=== PATIENT | male | born 1965 | race Caucasian/White ===

== ENCOUNTER 2018-01-19 11:12 | Emergency (ER) | payer MEDICARE, OTHER ==
[~2018-01-19] VITALS: Ht 177.8 cm; Wt 69.8 kg
--- OUTSIDE RECORDS SUMMARY | ~2018-01-19 | XMS | Clinical Summary ---
Demographics + + + | Address | [address] | | | [place] [address] | + + + | Home Phone | | + + + | Preferred Language | Unknown | + + + | Marital Status | Single | + + + | Voodoo Affiliation | 1009 | + + + | Race | Unknown | + + + | Ethnic Group | Unknown | + + + Author + + + | Author | [employer] | + + + | Organization | [employer] [facility] | + + + | Address | Unknown | + + + | Phone | Unavailable | + + + Support + + +---------+ + | Name | Relationship | Address | Phone | + + +---------+ + | Renard Ovalles | ECON | Unknown | | + + +---------+ + | Meghan Etienne | ECON | Unknown | | + + +---------+ + Care Team Providers + +------+ + | Care Plumber And Tinner Name | Role | Phone | + +------+ + | Jordin Mcginnis MD | PP | | + +------+ + Allergies No Known Allergies Current Medications Not on file Active Problems + + + | Problem | Noted Date | + + + | Acute respiratory failure with hypoxia (HCC) | 11/07/2015 | + + + | Aspiration into airway | 11/07/2015 | + + + | Airway obstruction due to foreign body | 11/07/2015 | + + + | Pneumothorax | 11/07/2015 | + + + | Cerebral palsy (HCC) | 11/07/2015 | + + + | Developmental delay | 11/07/2015 | + + + | Shock circulatory | 11/07/2015 | + + + | Subcutaneous emphysema (HCC) | 11/07/2015 | + + + Social History + +-------+ +--------+------+ | Tobacco Use | Types | Packs/Day | Years | Date | | | | | Used | | + +-------+ +--------+------+ | Never Smoker | | | | | + +-------+ +--------+------+ + +---+---+---+ | Smokeless Tobacco: | | | | | Never Used | | | | + +---+---+---+ + + + | Sex Assigned at | Date Recorded | | | | + + + | Not on file | | + + + Last Filed Vital Signs + + + + | Vital Sign | Reading | Time Taken | + + + + | Blood Pressure | 100/58 | 11/12/2015 5:32 PM PDT | + + + + | Pulse | 50 | 11/12/2015 5:32 PM PDT | + + + + | Temperature | 37.1 C (98.8 F) | 11/12/2015 5:32 PM PDT | + + + + | Respiratory Rate | 21 | 11/12/2015 5:32 PM PDT | + + + + | Oxygen Saturation | 98% | 11/12/2015 5:32 PM PDT | + + + + | Inhaled Oxygen | - | - | | Concentration | | | + + + + | Weight | 60.6 kg (133 lb 9.6 | 11/12/2015 3:15 AM PDT | | | oz) | | + + + + | Height | 167.6 cm (5' 6") | 11/08/2015 7:30 AM PDT | + + + + | Body Mass Index | 21.56 | 11/12/2015 3:15 AM PDT | + + + + Plan of Treatment Not on file Results Not on filefrom Last 3 Months Insurance + +--------+ +------+-------+ + | Payer | Benefi | Subscriber | Type | Phone | Address | | | t Plan | ID | | | | | | / | | | | | | | Group | | | | | + +--------+ +------+-------+ + | MEDICARE | MEDICA | [id number] | | | [address] | | | RE | | | | [place] [id number] | | | IP-OP | | | | | + +--------+ +------+-------+ + | MEDICAID | [employer] | [id number] | | | [address] | | | [place] | | | | [place] | | | [place] | | | | [phone] | | | SPARERIBS TRIMMER | | | | | + +--------+ +------+-------+ + + +--------+ +--------+ + + | Guarantor Name | Accoun | Relation to | Date | Phone | Billing Address | | | t Type | Patient | of | | | | | | | | | | + +--------+ +--------+ + + | JOSS DALLAS | Person | Self [birth year] Home: | [address] | | | al/Fam | | 1965 | [phone] | [place] | | | [place] | | | [phone] | + +--------+ +--------+ + +
--- OUTSIDE RECORDS SUMMARY | ~2018-01-19 | XMS | Clinical Summary ---
Demographics + + + | Address | [address] | | | [place] [address] | + + + | Home Phone | | + + + | Preferred Language | Unknown | + + + | Marital Status | Single | + + + | Mandaen Affiliation | 1009 | + + + | Race | Unknown | + + + | Ethnic Group | Unknown | + + + Author + + + | Author | [employer] | + + + | Organization | [facility] | + + + | Address [...] Team Providers + +------+ + | Care Air Transport Professionals Name | Role | Phone | + [...] +------+-------+ + | MEDICARE | MEDICA | [id number] | | | [address] | | | RE | | | | [place] [address] | | | IP-OP | | | | | + +--------+ +------+-------+ + | MEDICAID | [employer] | [id number] | | | [address] | | | N | | | | [place] | | | [place] | | | | [phone] | | | FORGE TENDER | | | | | + +--------+ [...] | Self | [birth year] | Home: | [address] | | | al/Fam | | 1965 | [phone] | [place] | | | [place] | | | [phone] | [phone] | + +--------+ +--------+ + +
[~2018-01-19 11:12] MED LIST: CARVEDILOL3.125 MG PO; DOK100 MG PO; LEVOTHYROXINE75 MCG PO; LOSARTAN POTASS50 MG PO; OLANZAPINE15 MG PO; SULFAMETHOXAZO1 EACH PO; VITAMIN D2000 UNI1 PO
[2018-01-19] MEDS ORDERED: LINZESS290 MCG PO (11:43)
[2018-01-19] MEDS ORDERED: FINASTERIDE5 MG PO (11:44)
[2018-01-19] MEDS ORDERED: KEFLEX500 MG PO (12:13)
== END 2018-01-19 12:35 | disposition home or self-care (01) ==
LOC: ED 11:12
DX: L97.429 Non-pressure chronic ulcer of left heel and midfoot with unspecified severity (principal); L03.116 Cellulitis of left lower limb; E03.9 Hypothyroidism, unspecified; Z88.8 Allergy status to other drugs, medicaments and biological substances; Z79.899 Other long term (current) drug therapy
CPT/HCPCS: 99283

== ENCOUNTER 2019-06-26 16:29 | Inpatient (IN) | payer MEDICARE, OTHER ==
[~2019-06-26] VITALS: Ht 177.8 cm; Wt 71.5 kg
[~2019-06-26 16:29] MED LIST changes: +FINASTERIDE5 MG PO; +KEFLEX500 MG PO; +LINZESS290 MCG PO
[2019-06-26] MEDS ORDERED: FLOMAX0.4 MG PO (18:51)
--- NOTE | 2019-06-26 19:41 | EKG ---
[facility] [address] [facility] [place], [place] [address] Signed Normal sinus rhythm Nonspecific T wave abnormality Abnormal ECG Confirmed by KILLIAN GARCIA DO ([id number]) on 06/26/2019 7:40:58 PM Electronically Signed By: KILLIAN GARCIA DO 06/26/191940 PATIENT NAME: JOSS DALLAS Electrocardiogram DATE OF : [birth year] PHYSICIAN: KILLIAN GARCIA DO REPORT #: [id number] REPORT IS CONFIDENTIAL AND NOT TO BE RELEASED WITHOUT AUTHORIZATION
--- NOTE | 2019-06-26 20:34 | NUR ---
PT ARRIVED IN CCU AT 192. V/S SO FAR ARE WDL, RLL HAS CRACKLES PRSENT, ALL OTHER LOBES ARE DIMISHED. PT IS ALSO NOT ABLE TO FOLLOW COMMANDS VERY WELL. ABD SOUNDS ARE HYPOACTIVE. ABD IS SOFT TO TOUCH AND PT DENIED PAIN. PT ALSO HAS A TREMOR. PT HAS SCABS PRSENT ALL OVER BILATERAL LEGS. PER OPERATOR RECEPTIONIST DIET SHOULD BE HONEY THICK AND NO STRAWS. IN REPORT, RN FROM ED SAID THAT PO ZITHROMAX 500MG WAS GIVEN. AT THIS TIME THIS DOES NOT SEEM TO BE THE CASE. IV ZITHROMAX IS TO BE GIVEN.
--- NOTE | 2019-06-26 22:34 | NUR ---
PT HAD 2 LARGE VOIDS. LINNEN WAS CHANGED. PT IS INCONTIINENT. NO NEW CONCERNS NOTED AT THIS TIME.
--- NOTE | 2019-06-26 22:57 | NUR ---
ALL SCHEDULED PO MEDS HAVE BEEN GIVEN. I WAS WAITING ON RESULTS FROM KUB. NO NEW CONCERNS NOTED AT THIS TIME.
--- NOTE | 2019-06-27 00:16 | NUR ---
ADMIT THIS 64YR OLD MALE TO CCU FROM ED. ABLE TO MOVED SELF FROM STRETCHER TO BED. NO SOB BUT DOES REQUEST HOB ELEVATED. HEPARIN GTT STARTED AT 2330 AT 16OO UNITS/HR. BROUGHT IN CPAP FROM HOME AND RT HERE TO SET IT UP. HAS CPAP IN PLACE AT HIS TIME WITH 02 4L BLED IN.
--- NOTE | 2019-06-27 00:21 | NUR ---
PT AT THIS TIME IS AWAKE IN BED. PT DENIES PAIN AND HAS NO OTHER NEEDS AT THIS TIME. NO BM SO FAR.
--- NOTE | 2019-06-27 02:23 | NUR ---
PT IS SLEEPING AT THIS TIME. NO NEW CONCERNS NOTED.
--- NOTE | 2019-06-27 04:15 | NUR ---
ALL LOBES AT THIS TIME ARE DIMINISHED BUT CLEAR, PT DID HAVE A SOFT BM. PT STILL DENIES PAIN AND SOB. BOWEL TONES ARE NORMALLY ACTIVE. PT IS DUE TO VOID AT THIS TIME. NO OTHER CONCERNS NOTED SO FAR.
--- NOTE | 2019-06-27 06:04 | NUR ---
PT IS SLEEPING AT THIS TIME. SO FAR PT HAD BM X1, PT HAD A VERY LARGE VOID EARLIER IN THE SHIFT WHICH I COUNTED 2 VOIDS. THE BED HAD TO BE CHANGED. PT HAS BEEN AFEBRILE ALL SHIFT SO FAR. NO ASPIRATION WAS NOTED WITH HONEY THICK LIQUIDS GIVEN. NO SPUTUM SAMPLE HAS BEEN OBTAINED SO FAR. PT HAS DENIED PAIN AND SOB ALL SHIFT SO FAR, V/S ARE WDL, UPON ARRIVAL PT HAD CRACKLES IN THE RLL AND DIMINISHED BREATH SOUNDS IN THE OTHER LOBES (PT IS NOT REALLY FOLLOWING COMMANDS TO TAKE DEEP BREATHS). AT 0415 ALL LOBES WERE DIMINISHED AND NO CRACKLES WERE NOTED.
--- NOTE | 2019-06-27 07:01 | NUR ---
PT STILL HAS NOT VOIDED. BLADDER SCAN SHOWED 465MLS PRESENT IN BLADDER. WILL LET DAY SHIFT KNOW.
--- NOTE | 2019-06-27 08:00 | NUR ---
AWAKE, ASSESSMENT DONE. DIFFICULT TO UNDERSTAND. HAS LOOSE NON-PRODUCTIVE COUGH. IVF PATENT. BREAKFASFT ORDERED.
--- NOTE | 2019-06-27 08:30 | NUR ---
OUT OF BED TO CHAIR WITH TOTAL ASSIST.
--- NOTE | 2019-06-27 08:50 | NUR ---
TOOK MEDICATIONS WITH PROBLEMS.
--- NOTE | 2019-06-27 09:00 | NUR ---
FED PATIENT BREAKFAST. TOLEATED WELL. NO COUGHING NOTED. TOOK 2 ENSURES, CREAM OF WHEAT, YOGART, APPLESAUSE.
--- NOTE | 2019-06-27 09:20 | NUR ---
INC OF LARGE AMOUNT OF URINE. BACK TO BED WITH TOTAL ASSIST, SPONGE BATH GIVEN AND ATTENDS PLACED.
--- NOTE | 2019-06-27 10:00 | NUR ---
DR. GARCIA HERE TO SEE PATIENT. IVF DECREASED 75 ML HR.
--- NOTE | 2019-06-27 10:18 | NUR ---
ST CHART REVIEW COMPLETED AND TELEPHONE CALL TO FLOOR; BASED ON COGNITIVE SKILLS AND PHYSICAL ABILITIES, PT WOULD BENEFIT FROM A MODIFIED BARIUM SWALLOW STUDY TO R/O ASPIRATION AND DETERMINE APPROPRIATE DIET INTAKE.
[2019-06-27] MEDS ORDERED: ZYPREXA10 MG PO (11:22)
[2019-06-27] MEDS ORDERED: VICKS DAYQUIL1 EACH PO (11:26)
[2019-06-27] MEDS ORDERED: MILK OF MA400 MG/5 M PO (11:26)
--- NOTE | 2019-06-27 11:28 | NUR ---
MED REC COMPLETE
--- NOTE | 2019-06-27 12:40 | NUR ---
TO XRAY VIA CHAIR FOR SWALLOW EVAL.
--- NOTE | 2019-06-27 13:30 | NUR ---
RETURN TO ROOM 127. BACK TO BED. NO DISTRESS NOTED. ORDERS FORM SPEECH THERAPY RECIEVED POST SWALLOW EVAL.
--- NOTE | 2019-06-27 14:20 | NUR ---
FED PATIENT THICKENED LIQ AND PUREED FOODS. TOLERATED WELL. HOB ELEVATED TO 70 DEGREES. CONTINUES TO HAVE SPASTIC MOVEMENTS AT TIMES. CAREGIVER SAID, THIS IN NORMAL FOR PATIENT.
--- NOTE | 2019-06-27 14:34 | NUR ---
WELT BEATER IN WORKING WITH PT. WILL CHECK BACK AGAIN
--- NOTE | 2019-06-27 15:20 | NUR ---
Attempted to speak with Ron and he is unable/unwilling to answer questions. Will call his [facility] for assessment.
--- NOTE | 2019-06-27 16:00 | NUR ---
REPORT TO MED-SURG. PATIENT IS ASLEEP.
--- NOTE | 2019-06-27 16:10 | NUR ---
TO MED-SURG VIA BED.
--- NOTE | 2019-06-27 16:26 | NUR ---
NEW ADMIT TO THE FLOOR. PT RESPONSIVE TO VERBAL STIMULI, APPEARS VERY TIRED. VS TAKEN, TEMP 101.5F PO. PT INCONTINENT; BRIEF DRY AT THIS TIME. ORIENTED PT TO ROOM AND CALL LIGHT. PERSONAL SUPPLIES AND CALL LIGHT WITHIN REACH. BED ALARM INTACT.
--- NOTE | 2019-06-27 16:36 | NUR ---
NOTIFIED DR. GARCIA REGARDING TEMP OF 101.5F PO. NO NEW ORDERS AT THIS TIME. TYLENOL TO BE ADMIN.
--- NOTE | 2019-06-27 16:48 | NUR ---
ADMIN TYLENOL 650MG PO CRUSHED WITH APPLESAUCE FOR FEVER OF 101.5F PO. PT TOLERATED WELL.
--- NOTE | 2019-06-27 17:17 | NUR ---
Called and spoke with Chandler from pt's assisted. Per Chandler pt uses a wc, and must be wheeled, he has dementia and is not able to answer questions. He requires full care for ADLS. He requires someone to feed him. He does not use home 02 or a nebulizer. Emergency contact is Meghan Campbell and this is his cousin. Per Chandler. pt will return to their assisted when able to discharge.
--- NOTE | 2019-06-27 19:06 | NUR ---
NEW ORDER OBTAINED FROM DR. GARCIA FOR PRN STRAIGHT CATH IF BLADDER SCAN EXCEEDS 500ML. DR. GARCIA AWARE PT HAS NOT VOIDED FOR SEVERAL HOURS AND CURRENT BLADDER SCAN IS 709ML.
--- NOTE | 2019-06-27 19:30 | NUR ---
BEDSIDE REPORT RECEIVED FROM MADELINE MAURICIO. pt RESTING IN BED. IVF INFUSING WNL ORDERED. pt VERBAL, STATING "HI" TO THIS RN. BED ALARM ON.
--- NOTE | 2019-06-27 20:45 | NUR ---
pt ASSESSMENT COMPLETE. pt REPOSITIONED WITH TWO RN ASSIST. HOB ELEVATED ABLE TO TAKE PO MEDICATIONS CRUSHED WITH APPLESAUCE. DRINKS OF MOD THICKENED APPLE JUICE BY SPOON PROVIDED. NO COUGHING NOTED. ATTENDS DRY AT THIS TIME. IV FLUSHED AND INFUSING WNL ORDERED. CALL LIGHT IN REACH. TV TURNED ON BY pt REQUEST. pt IS ORIENTED TO PERSON, ONLY. REORIENTATION PROVIDED. BED ALARM ON.
--- NOTE | 2019-06-27 23:28 | NUR ---
CHECKED ON pt. LYING IN BED AWAKE WATCHING TV. REPOSITIONED WITH TWO NURSING STAFF ASSIST. DRINKS OF MOD. THICK APPLE JUICE PROVIDED. IVF INFUSING WNL ORDERED. WARM BLANKET PROVIDED. BED ALARM ON. ATTENDS DRY.
--- NOTE | 2019-06-27 23:30 | NUR ---
ASSISTED PRIMARY RN JAMES REPOSITIONED PATIENT. PATIENT HAD SEVERAL SPOONFUL OF THICKENED JUICE.
--- NOTE | 2019-06-28 02:42 | NUR ---
CHECKED ON pt. RESTING IN BED WITH EYES CLOSED. BREATHING UNLABORED. HOB ELEVATED. IVF INFUSING WNL ORDERED.
--- NOTE | 2019-06-28 04:20 | NUR ---
pt BLADDER SCANNED FOR 526 MLS URINE. STRAIGHT CATHETER PLACED PER ORDER, 375 MLS EMPTIED. pt COUGHING, REPOSITIONED. HOB ELEVATED, SIPS OF THICKENED JUICE PROVIDED. LUNG SOUNDS CLEAR, DIMINISHED BILATERALLY IN BASES. VSS. AFEBRILE. ATTENDS IN PLACE. IVF INFUSING WNL ORDERED, IV FLUSHED WNL.
--- NOTE | 2019-06-28 05:15 | NUR ---
pt RESTED WELL IN MORNING HOURS. NO INCONTINENCE OF URINE. BLADDER SCAN >500 MLS, STRAIGHT CATHETER PER ORDERS. pt VERBAL, RESPONSIVE. ORIENTED TO SELF, ONLY. REORIENTATION PROVIDED. TURN Q2H. IVF INFUSING WNL THROUGHOUT SHIFT. THICKENED LIQUIDS OFFERED, pt TOLERATING WELL, NO COUGHING WITH DRINKING, EATING MEDICATIONS CRUSHED WITH APPLESAUCE. OCCASIONAL CONGESTED COUGH. SPO2 WNL ON RA.
--- NOTE | 2019-06-28 07:29 | NUR ---
PT IN BED RESTING, EYES CLOSED. PT HAS NO DISTRESS NOTED, RESPIRATIONS EVEN AND NON LABORED. PERSONAL SUPPLIES AND CALL LIGHT WITHIN REACH.
--- NOTE | 2019-06-28 07:52 | NUR ---
PATIENT SITTING UP IN BED. PATIENT'S HANDS AND FACE CLEANED. ONE PERSON ASSISTING. BREAKFAST ORDERED. CALL LIGHT WITHIN REACH. NO OTHER NEEEDS AT THIS TIME
--- NOTE | 2019-06-28 09:03 | NUR ---
PATIENT RESTING IN BED. PATIENT TRANSFERRED TO CHAIR. PATIENT USES GAIT BELT. TWO PERSON ASSISTING. LINENS CHANGED. WARM BLANKET PROVIDED. CALL LIGHT WITHIN REACH. NO OTHER NEEDS AT THIS TIME
--- NOTE | 2019-06-28 09:56 | NUR ---
PATIENT SITTING UP IN CHAIR. RN AND STUDENT RN IN ROOM. PATIENT FED. CALL LIGHT WITHIN REACH. NO OTHER NEEDS AT THIS TIME
--- NOTE | 2019-06-28 10:13 | NUR ---
PATIENT SITTING UP IN CHAIR. RN AND STUDENT RN IN ROOM. VITAL SIGNS DONE BY RN. I&O DONE. CALL LIGHT WITHIN REACH. NO OTHER NEEDS AT THIS TIME
--- NOTE | 2019-06-28 12:00 | NUR ---
In to speak with Ron, he is sleeping, not awakened.
--- NOTE | 2019-06-28 13:07 | NUR ---
X1 INCONTINENT VOID. BED LINEN AND DEPENDS CHANGED BOTH ARE SATURATED. PT DENIES NEEDS AT THIS TIME. PERSONAL SUPPLIES AND CALL LIGHT WITHIN REACH.
--- NOTE | 2019-06-28 13:07 | NUR ---
PATIENT SITTING UP IN CHAIR. PATIENT TRANSFERRED TO BED. THREE PERSON ASSISTING. PATIENT'S ATTEND CHANGED. PATIENT USING A CLEAN GOWN. CALL LIGHT WITHIN REACH. NO OTHER NEEDS AT THIS TIME
--- NOTE | 2019-06-28 13:43 | NUR ---
PATIENT SITTIN UP IN BED. PATIENT FED. VITAL SIGNS AND I&O DONE. CALL LIGHT WITHIN REACH. NO OTHER NEEDS AT THIS TIME
--- NOTE | 2019-06-28 15:52 | NUR ---
PT IN BED AT THIS TIME, RESP EVEN AND NON LABORED. PT HAS NO DISTRESS NOTED AT THIS TIME. PERSONAL SUPPLIES AND CALL LIGHT WITHIN REACH.
--- NOTE | 2019-06-28 16:15 | NUR ---
PATIENT'S DINNER ORDERED
--- NOTE | 2019-06-28 17:03 | NUR ---
PATIENT RESTING IN BED. PATIENT'S ATTEND CHANGED. LINEN CHANGED. PATIENT REPOSITIONED ON HIS RIGHT SIDE. THREE PERSON ASSISTING. VITAL SIGNS AND I&O DONE. HIGH TEMP. RN NOTIFIED. CALL LIGHT WITHIN REACH. NO OTHER NEEDS AT THIS TIME
--- NOTE | 2019-06-28 17:35 | NUR ---
ADMIN TYLENOL 650MG PO FOR GENERALIZED PAIN. PT EATING DINNER AT THIS TIME WITH CASHIER SELF SERVICE GASOLINE ASSIST; TOLERATING WELL. PERSONAL SUPPLIES AND CALL LIGHT WITHIN REACH.
--- NOTE | 2019-06-28 19:30 | NUR ---
BEDSIDE REPORT RECEIVED FROM MADELINE MAURICIO. pt RESTING IN BED WATCHING TV. BED ALARM ON. CALL LIGHT IN REACH. IV SITES SL.
--- NOTE | 2019-06-28 20:40 | NUR ---
ROUNDED CHARGE. PATIENT IS RESTING IN BED WATCHING TV. PATIENT DENIES ANY NEEDS. CALL LIGHT IN REACH.
--- NOTE | 2019-06-28 22:21 | NUR ---
pt ASSESSMENT COMPLETE. REPOSITIONED WITH TWO NURSING STAFF ASSIST. ATTENDS DRY. LUNG SOUNDS CLEAR THROUGHOUT. NO COUGHING NOTED AT THIS TIME. PO FLUIDS PROVIDED BY JEAN, HOB ELEVATED, TOLERATING INTAKE WELL. VSS. JEAN MONTANEZ IN ROOM.
--- NOTE | 2019-06-29 00:30 | NUR ---
pt INCONTINENT OF LARGE VOID. ATTENDS, LINENS, GOWN CHANGED. WARM BLANKETS PROVIDED. REPOSITIONED IN BED WITH TWO PERSON ASSIST. LIGHTS OFF IN ROOM. BED ALARM ON.
--- NOTE | 2019-06-29 03:00 | NUR ---
CHECKED ON pt. RESTING IN BED WITH EYES CLOSED. RR 18. LIGHTS OFF IN ROOM. BED ALARM ON.
--- NOTE | 2019-06-29 06:22 | NUR ---
pt ASSESSMENT COMPLETE. VSS. AFEBRILE. pt INCONTINENT OF URINE, ATTENDS, CHUX, GOWN CHANGED, SATURATED. WARM BLANKET PROVIDED. DRINKS OF APPLE JUICE PROVIDED. pt TOLERATED CRUSHED PO MEDICATION WITH PUDDING. NO COUGHING NOTED. LUNG SOUNDS CLEAR, DIMINISHED. BED ALARM ON.
--- NOTE | 2019-06-29 06:25 | NUR ---
pt WITH MULTIPLE INCONTINENT VOIDS THIS SHIFT. REPOSITIONED THROUGHOUT SHIFT. ORIENTED TO SELF, , HOSPITAL SETTING. AFEBRILE. VSS. TOLERATING MOD. THICK LIQUIDS, NO COUGHING WITH PO INTAKE. OCCASIONAL CONGESTED COUGH. UNABLE TO OBTAIN SPUTUM SAMPLE. IV SITES SL.
--- NOTE | 2019-06-29 07:27 | NUR ---
PATIENT IN BED SLEEPING. RESPIRATIONS EQUAL AND UNLABORED ON RA. CALL LIGHT IN REACH.
--- NOTE | 2019-06-29 08:40 | NUR ---
IDT completed for Marcus. Per Dr Valencia he will discharge pt today. Recieved RX and faxed dc notes to [facility] for sandra. Attempted to call analia Arteaga. No answer. 1019 Called and spoke with Chandler. He will transport pt home, but is out of town. We transport Chandler at 2 pm to home. Updated to orders and process for sandra. Informed I gave [facility] his number to call for questions.
[2019-06-29] MEDS ORDERED: DOXYCYCLINE HY100 MG PO (09:33)
--- NOTE | 2019-06-29 09:45 | NUR ---
PATIENT SITTING UP IN CHAIR. ADMINISTERED MEDICATIONS. PATIENT REPORTS NO PAIN. PATIENT IS ABLE TO STATE FULL NAME AND BIRTHDAY WELL STATE THAT HE IS IN THE HOSPITAL. PATIENT TOLERATED PILL FORM MEDICATIONS WELL WHEN MIXED IN SMALL BITES OF VANILLA PUDDING. SATS AT 97% ON RA. INTERMITTENT COUGHING EPISODES YET PATIENT IS UNABLE TO PRODUCE SPUTUM. CALL LIGHT IN REACH.
--- NOTE | 2019-06-29 11:30 | NUR ---
PATIENT UP IN CHAIR WATCHING TELEVISION. NO COMPLAINTS OF PAIN. RESPIRATIONS EQUAL AND UNLABORED ON RA. PATIENT SCHEDULED FOR DISCHARGE THIS AFTERNOON. CALL LIGHT IN REACH.
--- NOTE | 2019-06-29 12:45 | NUR ---
PATIENT SITTING UP IN CHAIR. USED ZACK LIFT TO MOVE PATIENT BACK TO BED TO BLADDER SCAN. PATIENT HASNT VOIDED IN 6 HOURS. BLADDER VOLUME 717. ENCOURAGED VOIDING WITH URINAL. WILL REASSESS IN 30 MIN.
--- NOTE | 2019-06-29 13:30 | NUR ---
PATIENT LYING IN BED. WAFER FABRICATION TECHNICIAN DRESSING PATIENT PREPARING HIM FOR DISCHARGE. PATIENT STILL UNABLE TO VOID. BLADDER SCAN VOLUME 717. NURSE PERFORMED STRAIGHT CATH. VOLUME 900 CC'S. PATIENTS CAREGIVER ASAD ARRIVED TO TRANSPORT PATEINT BACK TO [facility]. VITALS TAKEN. PATIENT RESTING COMFORTABLY ON ROOM AIR. NO REPORTS OF PAIN PRIOR TO DISCHARG.
--- NOTE | 2019-06-29 13:43 | NUR ---
PT LAYING IN BED, TRIED TO TALK TO PT. PT DID NOT RESPOND. WILL CONTINUE TO FOLLOW NEEDED
== END 2019-06-29 14:30 | disposition home or self-care (01) | DRG 871 ==
LOC: ED 16:29 → CCU 18:52 → MS 18:52
PROVIDERS: ADMIT Student in an Organized Health Care Education/Training Program
DX: A41.9 Sepsis, unspecified organism (principal); J69.0 Pneumonitis due to inhalation of food and vomit; G93.41 Metabolic encephalopathy; E87.1 Hypo-osmolality and hyponatremia; F39 Unspecified mood [affective] disorder; R62.50 Unspecified lack of expected normal physiological development in childhood; N40.0 Benign prostatic hyperplasia without lower urinary tract symptoms; E03.9 Hypothyroidism, unspecified; R07.89 Other chest pain; K59.09 Other constipation; Z88.5 Allergy status to narcotic agent; Z99.3 Dependence on wheelchair; Z79.899 Other long term (current) drug therapy; Z79.2 Long term (current) use of antibiotics
CPT/HCPCS: 36415; 51701; 71045; 74018; 74230; 80048; 80053; 81001; 83605; 83735; 84484; 85025; 87502; 92526; 92611; 93005; 93010; 94667; 94668; 94760; 99285-25; J0456; J0696; J1650; J7060; J7121

== ENCOUNTER 2022-01-30 05:47 | Day surgery (SDC) | payer MEDICARE, OTHER ==
[~2022-01-30] VITALS: Ht 177.8 cm; Wt 59.0 kg
[~2022-01-30 05:47] MED LIST changes: +DOXYCYCLINE HY100 MG PO; +FLOMAX0.4 MG PO; +MILK OF MA400 MG/5 M PO; +VICKS DAYQUIL1 EACH PO; +ZYPREXA10 MG PO
--- NOTE | 2022-01-30 08:16 | NUR ---
01/30/22 0816 Soila Justice 0809- PT ARRIVES TO PACU NONAROUSABLE TO NOXIOUS STIMULI. RESP EVEN AND SHALLOW. PT HAS AN OPA IN PLACE. PT'S HR IN THE HIGH 30'S TO MID 40'S. CLIENT SERVICE PROFESSIONAL AWARE AND GETTING MEDICATION FOR HR. OXYGEN SAT HIGH 90'S TO 100% ON 6L VIA MASK. 0811- JAW THRUST BEING PERFORMED. THIS IS STIMULATING PT AND HR INCREASES TO THE LOW 50'S. PT'S HR WAS IN THE LOW 50'S PRE-OP WELL. NO MEDICATION FOR HR GIVEN AT THIS TIME.
--- NOTE | 2022-01-30 09:02 | NUR ---
0840-PATIENT BACK TO ROOM FROM PACU ON RA. RECEIVED REPORT FROM YUDI CORREA. PATIENT IS AWAKE. RESP EVEN AND UNLABORED. NO PAIN OR NAUSEA. SMALL AMOUNT OF BLOOD IN PATIENTS MOUTH. PATIENT EATING APPLESAUCE. CAREGIVER IN ROOM. BED RAILS UP. CALL LIGHT WITHIN REACH.
--- NOTE | 2022-01-30 09:56 | NUR ---
0935-PATIENT LAYING IN BED AWAKE. PATIENT DENIES PAIN. NO NAUSEA NOTED. RESP EVEN AND UNLABORED. NO BLOOD SEEN IN HIS MOUTH. 0949-PATIENT TRANSFERED TO WHEELCHAIR WITH 3 RN ASSIST. PATIENT WHEELED TO VAN WAITING OUTSIDE. DISHCHARGE INSTRUCTIONS GIVEN TO CAREGIVER. ALL QUESTIONS ANSWERED. CAREGIVER ASSISTED PATIENT IN TO VAN.
== END 2022-01-30 09:47 | disposition home or self-care (01) ==
LOC: DS 05:47
PROVIDERS: ATTEND Dentist
PROC: 0CDXXZ1 Extraction of Lower Tooth, Multiple, External Approach (ICD-10-PCS; principal; 2022-01-30 07:30)
DX: K03.6 Deposits [accretions] on teeth (principal); G11.9 Hereditary ataxia, unspecified; I10 Essential (primary) hypertension; E03.9 Hypothyroidism, unspecified; N39.0 Urinary tract infection, site not specified; R00.1 Bradycardia, unspecified
CPT/HCPCS: 36415; 80048; 85025; J1100; J2001; J2250; J2405; J2704; J3010; J7121